=== PATIENT | male | born 1975 | race Caucasian/White ===

== ENCOUNTER 2017-08-10 11:14 | Emergency (ER) | payer BC ==
[~2017-08-10] VITALS: Ht 172.7 cm; Wt 86.2 kg
== END 2017-08-10 15:21 | disposition home or self-care (01) ==
LOC: ED 11:14
DX: N20.1 Calculus of ureter (principal); F17.200 Nicotine dependence, unspecified, uncomplicated; Z87.442 Personal history of urinary calculi
CPT/HCPCS: 80053; 81001; 85025; 96374; 96375; 99283; J1885; J2001; J2405